=== PATIENT | male | born 1975 | race Caucasian/White ===

== ENCOUNTER 2024-05-10 23:54 | Emergency (ER) | payer OTHER, SELFPAY ==
[2024-05-10 23:54] VITALS: BMI 37.0
[2024-05-10 23:55] VITALS: BP 122/74
--- NOTE | 2024-05-11 00:42 | ED.GENMED ---
History of Present Illness
General
Chief Complaint: Abdominal Pain
Time Seen by Provider: 05/11/24 00:08
History of Present Illness
History of Present Illness:
49-year-old male with history of cirrhosis, esophageal varices, withdrawal seizures, EtOH abuse with last ingestion 5 months ago, chronic lower extremity edema presenting to the emergency department for multiple complaints. Patient primarily
presenting for abdominal pain. Patient notes that he has been having abdominal pain for the past year, in the past few days however, has worsened in the right upper region of the abdomen. Reports nausea, denies vomiting. Denies chest pain or
difficulty breathing. Denies fever. Additionally notes some bilateral leg pain, radiating down his legs, ongoing for several months. Denies inciting injury or trauma. Denies weakness or numbness to extremities. Additionally notes chronic right
sided blindness and in the past year, has had worsening left-sided vision. No additional history obtained at this time
Past History
Past History
ED Past Medical History: Cancer (Hepatocellular carcinoma) and Other (Alcoholic cirrhosis)
Social History
Alcohol: Former
Phy Exam
Physical Exam
Physical Exam:
General: Well-appearing, no clinical signs of dehydration, nontoxic and in no acute distress
HEENT: protecting airway
Neck: appears supple
CV: Normal heart rate, regular rhythm
Resp: No accessory muscle use, no increased work of breathing, lungs clear to auscultation bilaterally
Abd: Soft and non-distended, generalized tenderness to the abdomen, most prominent in the right upper quadrant without rebound or guarding
Extremities: No deformities, +2-3 pitting edema bilaterally, noted to be chronic. No erythema or warmth. Range of motion of extremities is intact. Sensation intact.
Neuro: alert, no focal neurologic deficit
: deferred
Rectal: deferred
Psych: Normal affect
Skin: Intact
Course
Orders/Labs/Results
Orders:
Orders
05/11/24 00:37
Urinalysis Reflex To Culture Urgent
05/11/24 00:38
CT Abd/pelvis W Iv Cont Urgent
Comment:
Reason For Exam: right sided abdominal pain, known liver disease
05/11/24 00:57
CT Head W/o Iv Contrast Urgent
Comment:
Reason For Exam: Left visual issue
05/11/24 01:09
PTT Urgent
Prothrombin Time Urgent
05/11/24 01:10
Complete Blood Count/With Diff Urgent
05/11/24 01:30
Comprehensive Metabolic Panel Urgent
Lipase Urgent
Comment: REDRAW
05/11/24 01:49
Morphine Sulfate 4 mg IV NOW STA
05/11/24 01:55
Ondansetron Injectable [Zofran] 4 mg IV NOW STA
05/11/24 01:56
Ondansetron Injectable [Zofran] 4 mg .ROUTE .STK-MED ONE
Abnormal Lab Results
05/11/24 05/11/24 05/11/24
01:09 01:10 01:30
WBC 4.1 L 10^3/uL
(4.8-10.8)
RBC 3.16 L 10^6/uL
(4.70-6.10)
Hgb 10.5 L g/dL
(13.0-18.0)
Hct 29.4 L %
(39.0-52.0)
MCH 33.2 H pg
(27.0-31.0)
RDW 15.6 H %
(11.5-14.5)
Plt Count 88 L 10^3/uL
(130-400)
MPV 10.7 H fL
(7.4-10.4)
Absolute Monos (auto) 0.8 H 10^3/uL
(0.1-0.6)
Neutrophils % 35.0 L %
(42.2-75.2)
Monocytes % 19.1 H %
(1.7-9.3)
PT 18.7 H Sec
(11.4-14.6)
APTT 37.2 H Sec
(23.4-35.0)
Chloride 113 H mmol/L
(98-107)
Carbon Dioxide 19 L mmol/L
(22-30)
Total Bilirubin 1.5 H mg/dl
(0.2-1.3)
Total Protein 6.1 L g/dl
(6.3-8.2)
Albumin 3.0 L g/dl
(3.5-5.0)
05/11/24 01:10
05/11/24 01:30
Vital Signs
Initial and Last Documented VS:
Initial Vital Signs
Temp Pulse Resp BP Pulse Ox
97.8 F 57 20 122/74 98
05/10/24 23:55 05/10/24 23:55 05/10/24 23:55 05/10/24 23:55 05/10/24 23:55
Last Documented Vital Signs
Temp Pulse Resp BP Pulse Ox
97.8 F 53 13 109/64 98
05/10/24 23:55 05/11/24 01:30 05/11/24 01:30 05/11/24 01:01 05/10/24 23:55
MDM/Problems Addressed
MDM/Problems Addressed:
49-year-old male with history of cirrhosis, esophageal varices, withdrawal seizures, EtOH abuse with last ingestion 5 months ago, chronic lower extremity edema presenting primarily for abdominal pain. Vital signs are normal.
On exam patient resting comfortably, nontoxic, no acute distress or discomfort. Given patient's medical history and location of pain, with known liver disease, suspected underlying chronic symptoms, has been ongoing for more than a year. For this
reason lower suspicion for acute pathology such as Coleocystitis or cholelithiasis. However, is additionally tender to the right lower quadrant. Given additional diffuse pain and chronic medical issues, plan for laboratory analysis and CT
abdominal imaging. Regarding back pain, suspected lumbar radiculopathy. Again chronic in nature. Without concern for severe pathology. No midline tenderness, no report of trauma, no focal neurologic deficits or red flag symptoms. Regarding
visual issues, again suspected chronic in nature. Reports worsening in the past month. This reason we will obtain a CT brain. Otherwise likely plan for outpatient ophthalmologic follow-up.
02:50 -CT brain without acute intracranial abnormality. CT of the abdomen and pelvis does show cirrhosis with trace edema around the pancreas, suspected to be from ascites. Normal appendix, no bowel obstruction or inflammation. At this time no
findings to suggest acute nature of patient's pain. Labs unremarkable, no leukocytosis, chronic anemia. Feel stable for discharge with interval follow-up with his GI doctor, as well as the eye doctor. Return precautions discussed and patient
verbalized understanding
*Critical Care Note
Total Time (30-74mins, 75-104mins- exclusive of procedures): Not Applicable
ED Attending Note
-
Portions of this chart may have been created with voice recognition software.� Occasional wrong word or��sound alike� substitutions may have occurred due to the inherent limitations of voice recognition software.
Discharge Plan
Departure
Prescriptions:
No Action
oxycodone 20 MG tablet
20 mg PO Q4HPRN PRN (Reason: moderate to severe pain)
Patient Comments:
05/27/2021: last filled on 05/22/21, 60 tabs for 10 days from [facility]
lactulose 10 GM/15 ML solution
10 gm PO BID
Aldactone
Patient Comments:
Pt unsure of prescribed dose- stopped taking on own 'a couple of months ago'
pantoprazole 40 MG tablet,delayed release (DR/EC)
40 mg PO BID Qty: 30 0RF
Referrals:
Lianne Patton MD [Family Provider] -
Interventions
Interventions:
*Risk Screen - Suicide Last Done: 05/10/24 23:55
*General Assessment Last Done: 05/10/24 23:55
*Neglect/Abuse Screening Last Done: 05/10/24 23:55
ED- Fall Risk Assessment Last Done: 05/10/24 23:55
*ED COVID-19 Vaccine History Last Done: 05/10/24 23:55
Discharge Date and Time
Print Language: YAKUT
[2024-05-11 01:01] VITALS: BP 109/64
[2024-05-11] MEDS: MORPHINE SULFATE 4 MG IV (01:51)
[2024-05-11 01:54] LABS: INR 1.58; PT 18.7 Sec (11.4-14.6)
[2024-05-11 01:55] LABS: APTT 37.2 Sec (23.4-35.0)
[2024-05-11] MEDS: ZOFRAN 4 MG IV (01:57)
[2024-05-11 01:58] VITALS: BP 124/75
[2024-05-11 02:00] LABS: ALT (SGPT) 21 U/L (0-50); AST (SGOT) 38 U/L (17-59); Alkaline Phosphatase 122 U/L (38-126); Blood Urea Nitrogen 11 mg/dl (9-20); Calcium 8.6 mg/dl (8.4-10.2); Carbon Dioxide 19 mmol/L (22-30); Chloride 113 mmol/L (98-107); Estimated Creatinine Clearance > 125 ml/min; Glucose 96 mg/dl (70-99); Lipase 201 U/L (23-300); Sodium 143 mmol/L (135-145); Total Bilirubin 1.5 mg/dl (0.2-1.3); Total Protein 6.1 g/dl (6.3-8.2); eGFR > 60.00
[2024-05-11 02:05] LABS: % Basophils 1.2 % (0-2); % Eosinophils 4.9 % (0-6); % Immature Granulocytes 0.2 % (0-0.5); % Lymphocytes 39.6 % (20.5-51.1); % Monocytes 19.1 % (1.7-9.3); Absolute Basophils 0.1 10^3/uL (0-0.2); Absolute Eosinophils 0.2 10^3/uL (0-0.7); Absolute Lymphocytes 1.6 10^3/uL (1.2-3.4); Absolute Monocytes 0.8 10^3/uL (0.1-0.6); Absolute Neutrophils 1.4 10^3/uL (1.4-6.5); Hematocrit 29.4 % (39.0-52.0); Hemoglobin 10.5 g/dL (13.0-18.0); Mean Corp Hgb Conc. 35.7 g/dL (33.0-37.0); Mean Corpuscular Hgb 33.2 pg (27.0-31.0); Mean Platelet Volume 10.7 fL (7.4-10.4); Nucleated Red Blood Cells % 0 % (-); Platelet Count 88 10^3/uL (130-400); Red Blood Cell Count 3.16 10^6/uL (4.70-6.10); Red Cell Dist. Width 15.6 % (11.5-14.5); White Blood Cell Count 4.1 10^3/uL (4.8-10.8)
== END 2024-05-11 03:30 | disposition home or self-care (01) ==
LOC: EMR 23:54
PROVIDERS: EMERGENCY PHYSICIAN Student in an Organized Health Care Education/Training Program; FAMILY PHYSICIAN Internal Medicine
DX: R10.9 Unspecified abdominal pain (principal); K70.30 Alcoholic cirrhosis of liver without ascites; M79.605 Pain in left leg; M79.604 Pain in right leg; G89.29 Other chronic pain; H54.7 Unspecified visual loss
CPT/HCPCS: 96374; 96375; 99284; 70450; 74177; 80053; 83690; 85025; 85610; 85730; Q9967

== ENCOUNTER 2024-05-20 15:03 | Inpatient (IN) | payer OTHER, SELFPAY ==
[2024-05-20] VITALS (12 sets, daily range): BP systolic 85–138; BP diastolic 63–89
--- NOTE | 2024-05-20 12:45 | ED.GENMED ---
History of Present Illness
<Sunita Teran PA-C - Last Filed: 05/20/24 19:20>
General
Chief Complaint: Withdrawal Symptoms
Source: patient
Exam Limitations: none
Time Seen by Provider: 05/20/24 12:42
Nursing documentation reviewed up to this point in time: agreed with
History of Present Illness
History of Present Illness:
49-year-old male with past medical history of bleeding gastric ulcer, alcohol use disorder, cirrhosis of the liver, presents emergency department with concerns of alcohol withdrawal. Patient states that yesterday, he had a few drinks for the first
time in 5 months and states that later in the evening, he started to develop tremors, nausea, and abdominal discomfort. He also states that he feels anxiety on and off. Daughter reports that patient has appeared slightly confused to her and
thought that he might have been having auditory hallucinations last night. Patient denies headaches, lightheadedness, dizziness, chest pain. Patient also admits that he had an episode of dark almost black stool this morning. Patient has seized
from alcohol withdrawal in the past. Patient has been in rehab in the past and wants to go bad to an inpatient rehab facility.
Past History
<Sunita Teran PA-C - Last Filed: 05/20/24 19:20>
Past History
ED Past Medical History: Cancer (Hepatocellular carcinoma) and Other (Alcoholic cirrhosis)
Social History
Alcohol: Former
Review of Systems
<Sunita Teran PA-C - Last Filed: 05/20/24 19:20>
Review of Systems
All Other Systems: ROS reviewed and negative except as documented in HPI and ROS
Phy Exam
<Sunita Teran PA-C - Last Filed: 05/20/24 19:20>
Physical Exam
Physical Exam:
General: Patient is in mild anxious distress, appears uncomfortable, but non-toxic appearing
Skin: Warm and dry, no rashes or lesions
Head: Normocephalic, atraumatic
Eyes: Sclera mildly cicteric. EOMs intact. PERRLA.
Cardiac: Regular rate and rhythm, no murmurs
Peripheral Vascular: No lower extremity swelling or edema
Pulm: Normal respiratory effort, no wheezes, rales, rhonchi
Abdomen: Epigastric abdominal tenderness to palpation noted with guarding
Rectal: Minimal stool noted in rectal vault.
Neuro: CN II-XII intact, resting tremor noted with arms extended.
Psychiatric: Anxious but pleasant and cooperative
Scores
<Sunita Teran PA-C - Last Filed: 05/20/24 19:20>
Withdrawal Assessment of Alcohol
Withdrawal Assessment Completed?: Yes
Nausea and Vomiting: Mild nausea with no vomiting
Tactile Disturbances: Mild itching, pins and needles, burning or numbness
Tremor: Moderate, with patient's arms extended
Auditory Disturbances: Not present
Paroxysmal Sweats: No sweat visible
Visual Disturbances: Not present
Anxiety: Mild anxiety
Headache, Fullness in Head: Not present
Agitation: Moderately fidgety and restless
Orientation and clouding of sensorium: Oriented and can do serial additions
Total CIWA Score: 12
Alcohol Withdrawal Medication Recommendation: Equal to MSAS Score 5-7. Lorazepam 1mg IV or PO NOW & re-assess q2hrs
<Fernando Fried MD - Last Filed: 05/21/24 05:59>
Withdrawal Assessment of Alcohol
Total CIWA Score: 12
Alcohol Withdrawal Medication Recommendation: Equal to MSAS Score 5-7. Lorazepam 1mg IV or PO NOW & re-assess q2hrs
Course
<Sunita Teran PA-C - Last Filed: 05/20/24 19:20>
Orders/Labs/Results
Orders:
Orders
05/20/24 Breakfast
NPO
Allow oral meds: Yes
Allow clear liquids: Sips of Clears
05/20/24 12:52
Alcohol Urgent
Complete Blood Count/With Diff Urgent
Comprehensive Metabolic Panel Urgent
Lipase Urgent
Comment: ADD ON
05/20/24 12:55
Ammonia Urgent
05/20/24 12:56
Add On- LAB Urgent
Tests Added?: lipase
05/20/24 13:03
0.9% Sodium Chloride 1000 ml [Nss] 1,000 ml IV BOLUS
Lorazepam [Ativan] 2 mg IV NOW STA
Ondansetron Injectable [Zofran] 4 mg IV NOW STA
05/20/24 13:04
Electrocardiogram (*1) Urgent
Reason for Study: QTc Monitoring
EKG- Treatment ONCE
05/20/24 13:57
Pantoprazole [Protonix IV] 40 mg IV NOW STA
05/20/24 14:00
Lactulose [Duphalac/Chronulac] 20 grams PO DAILY
Pantoprazole 80 mg/100 ml Nss [Protonix] 80 mg in 100 ml IV Q10H
05/20/24 14:53
Admit/Transfer Patient As Directed
Co-Sign Provider:
Level of Care: Inpatient admission
Assign to:: IMU- Intermediate Care
Physician / Group: adrien
Diagnosis: UGIB, hepatic encephelopathy
Reason for Hospitalization: UGIB, hepatic encephelopathy
Expected length of stay greater than two midnights?: Yes
ELOS- Estimated Length of Stay in days: 2
I certify the patient meets the requirements for IP care: Yes
Code Status As Directed
Resuscitation Status: Full Code
PRN Pain Medication Management As Directed
May give lesser potent ordered pain med per pt: Yes
preference::
Protocol:: Medication orders for pain may be administered in a
manner that supports deferring to patient preference
when the pt is:
- Requesting an ordered lesser potent pain medication.
Least to most potent pain medications are defined
as: acetaminophen < NSAID < tramadol < opioids
(morphine, oxycodone, hydromorphone).
- Requesting a lesser dose of the same medication IF
ORDERED.
- Requesting a less intrusive route of administration
if both routes are prescribed by the provider (PO <
IV).
05/20/24 14:58
US Abdomen Limited Urgent
Comment:
Reason For Exam: ascites
05/20/24 Dinner
Clear Liquid
At Your Request: Limited Participation
05/20/24 16:00
CefTRIAXone [Rocephin] 2,000 mg IV Q24H
05/20/24 17:37
0.9% Sodium Chloride [Nss (Preservative Free)] See Protocol IV PRN PRN
FOLic ACID [Folvite] 1 mg 0.9% Sodium Chloride 50 ml [Nss] 50 ml IV DAILYPRN
Lorazepam [Ativan] 1 mg IV Q1HPRN PRN
Lorazepam [Ativan] 1 mg PO Q2HPRN PRN
Lorazepam [Ativan] 2 mg IV Q1HPRN PRN
05/20/24 17:37
GASTROINTESTINAL CONSULT Routine
Consulting Provider: Sangeetha Mills
Was physician already notified: Yes
Activity As Directed
Activity Level: As Tolerated
MSAS SCORE As Directed
MSAS Score 0-4: Repeat MSAS every 2 hours until 0-4 for three consecutive assessments, then every 4 hours x 48
hours.
MSAS Score 5-7: For MILD withdrawl symptoms. Repeat MSAS and RASS every 2 hours
MSAS Score 8-11: For MODERATE withdrawal symptoms. Repeat MSAS and RASS every 1 hour. Consider ICU or IMU
level of care.
MSAS Score > 11: For SEVERE withdrawal symptoms. Repeat MSAS and RASS every 1 hour. Notify provider, consider
ICU level of care.
MSAS Additional Instructions: If no improvement or no decrease in score from severe to moderate within 12
hours, consult psychiatry
MSAS Notify Provider: Notify provider if patient requires more than 10 mg of Lorazepam in eight hour period.
Orthostatic Vital Signs As Directed
Orthostatic VS Frequency: Now
Comment: then every four hours for twenty-four hours
Pneumatic Compression Sleeves As Directed
Type: Knee high
Vital Signs As Directed
Frequency: Per unit guidelines
DX Deep Vein Thrombosis Video Routine
05/20/24 18:00
Octreotide Acetate [Sandostatin] 600 mcg 0.9% Sodium Chloride 500 ml [Nss] 500 ml IV Q12H
05/20/24 20:00
Carvedilol [Coreg] 3.125 mg PO BID
Rifaximin [Xifaxan] 550 mg PO BID
Thiamine Injection 200 mg IV Q12
05/21/24 00:00
Pantoprazole 80 mg/100 ml Nss [Protonix] 80 mg in 100 ml IV Q10H
05/21/24 05:11
Complete Blood Count/With Diff IN AM
05/21/24 08:00
FOLic ACID [Folvite] 1 mg PO DAILY
Furosemide [Lasix] 40 mg PO DAILY
Spironolactone [Aldactone] 50 mg PO DAILY
05/23/24 20:00
Thiamine HCl [Vitamin B1] 100 mg PO BID
Abnormal Lab Results
05/20/24 05/20/24
12:52 12:55
WBC 3.4 L 10^3/uL
(4.8-10.8)
RBC 3.35 L 10^6/uL
(4.70-6.10)
Hgb 11.2 L g/dL
(13.0-18.0)
Hct 31.5 L %
(39.0-52.0)
MCH 33.4 H pg
(27.0-31.0)
RDW 15.9 H %
(11.5-14.5)
Plt Count 91 L 10^3/uL
(130-400)
Monocytes % 16.1 H %
(1.7-9.3)
BUN 7 L mg/dl
(9-20)
Glucose 120 H mg/dl
(70-99)
Total Bilirubin 3.1 H mg/dl
(0.2-1.3)
AST 64 H U/L
(17-59)
Ammonia 116 H umol/L
(9-30)
Lipase 309 H U/L
(23-300)
05/20/24 12:52
05/20/24 12:52
Vital Signs
Initial and Last Documented VS:
Initial Vital Signs
Temp Pulse Resp BP Pulse Ox
98.2 F 86 24 124/89 98
05/20/24 12:15 05/20/24 12:15 05/20/24 12:15 05/20/24 12:15 05/20/24 12:15
Last Documented Vital Signs
Temp Pulse Resp BP Pulse Ox
97.6 F 62 15 103/59 92
05/21/24 04:09 05/21/24 02:20 05/21/24 02:20 05/21/24 02:20 05/21/24 02:20
<Fernando Fried MD - Last Filed: 05/21/24 05:59>
Orders/Labs/Results
Orders:
Orders
05/20/24 Breakfast
NPO
Allow oral meds: Yes
Allow clear liquids: Sips of Clears
05/20/24 12:52
Alcohol Urgent
Complete Blood Count/With Diff Urgent
Comprehensive Metabolic Panel Urgent
Lipase Urgent
Comment: ADD ON
05/20/24 12:55
Ammonia Urgent
05/20/24 12:56
Add On- LAB Urgent
Tests Added?: lipase
05/20/24 13:03
0.9% Sodium Chloride 1000 ml [Nss] 1,000 ml IV BOLUS
Lorazepam [Ativan] 2 mg IV NOW STA
Ondansetron Injectable [Zofran] 4 mg IV NOW STA
05/20/24 13:04
Electrocardiogram (*1) Urgent
Reason for Study: QTc Monitoring
EKG- Treatment ONCE
05/20/24 13:57
Pantoprazole [Protonix IV] 40 mg IV NOW STA
05/20/24 14:00
Lactulose [Duphalac/Chronulac] 20 grams PO DAILY
Pantoprazole 80 mg/100 ml Nss [Protonix] 80 mg in 100 ml IV Q10H
05/20/24 14:53
Admit/Transfer Patient As Directed
Co-Sign Provider:
Level of Care: Inpatient admission
Assign to:: IMU- Intermediate Care
Physician / Group: adrien
Diagnosis: UGIB, hepatic encephelopathy
Reason for Hospitalization: UGIB, hepatic encephelopathy
Expected length of stay greater than two midnights?: Yes
ELOS- Estimated Length of Stay in days: 2
I certify the patient meets the requirements for IP care: Yes
Code Status As Directed
Resuscitation Status: Full Code
PRN Pain Medication Management As Directed
May give lesser potent ordered pain med per pt: Yes
preference::
Protocol:: Medication orders for pain may be administered in a
manner that supports deferring to patient preference
when the pt is:
- Requesting an ordered lesser potent pain medication.
Least to most potent pain medications are defined
as: acetaminophen < NSAID < tramadol < opioids
(morphine, oxycodone, hydromorphone).
- Requesting a lesser dose of the same medication IF
ORDERED.
- Requesting a less intrusive route of administration
if both routes are prescribed by the provider (PO <
IV).
05/20/24 14:58
US Abdomen Limited Urgent
Comment:
Reason For Exam: ascites
05/20/24 Dinner
Clear Liquid
At Your Request: Limited Participation
05/20/24 16:00
CefTRIAXone [Rocephin] 2,000 mg IV Q24H
05/20/24 17:37
0.9% Sodium Chloride [Nss (Preservative Free)] See Protocol IV PRN PRN
FOLic ACID [Folvite] 1 mg 0.9% Sodium Chloride 50 ml [Nss] 50 ml IV DAILYPRN
Lorazepam [Ativan] 1 mg IV Q1HPRN PRN
Lorazepam [Ativan] 1 mg PO Q2HPRN PRN
Lorazepam [Ativan] 2 mg IV Q1HPRN PRN
05/20/24 17:37
GASTROINTESTINAL CONSULT Routine
Consulting Provider: Sangeetha Mills
Was physician already notified: Yes
Activity As Directed
Activity Level: As Tolerated
MSAS SCORE As Directed
MSAS Score 0-4: Repeat MSAS every 2 hours until 0-4 for three consecutive assessments, then every 4 hours x 48
hours.
MSAS Score 5-7: For MILD withdrawl symptoms. Repeat MSAS and RASS every 2 hours
MSAS Score 8-11: For MODERATE withdrawal symptoms. Repeat MSAS and RASS every 1 hour. Consider ICU or IMU
level of care.
MSAS Score > 11: For SEVERE withdrawal symptoms. Repeat MSAS and RASS every 1 hour. Notify provider, consider
ICU level of care.
MSAS Additional Instructions: If no improvement or no decrease in score from severe to moderate within 12
hours, consult psychiatry
MSAS Notify Provider: Notify provider if patient requires more than 10 mg of Lorazepam in eight hour period.
Orthostatic Vital Signs As Directed
Orthostatic VS Frequency: Now
Comment: then every four hours for twenty-four hours
Pneumatic Compression Sleeves As Directed
Type: Knee high
Vital Signs As Directed
Frequency: Per unit guidelines
DX Deep Vein Thrombosis Video Routine
05/20/24 18:00
Octreotide Acetate [Sandostatin] 600 mcg 0.9% Sodium Chloride 500 ml [Nss] 500 ml IV Q12H
05/20/24 20:00
Carvedilol [Coreg] 3.125 mg PO BID
Rifaximin [Xifaxan] 550 mg PO BID
Thiamine Injection 200 mg IV Q12
05/21/24 00:00
Pantoprazole 80 mg/100 ml Nss [Protonix] 80 mg in 100 ml IV Q10H
05/21/24 05:11
Complete Blood Count/With Diff IN AM
05/21/24 08:00
FOLic ACID [Folvite] 1 mg PO DAILY
Furosemide [Lasix] 40 mg PO DAILY
Spironolactone [Aldactone] 50 mg PO DAILY
05/23/24 20:00
Thiamine HCl [Vitamin B1] 100 mg PO BID
Abnormal Lab Results
05/20/24 05/20/24
12:52 12:55
WBC 3.4 L 10^3/uL
(4.8-10.8)
RBC 3.35 L 10^6/uL
(4.70-6.10)
Hgb 11.2 L g/dL
(13.0-18.0)
Hct 31.5 L %
(39.0-52.0)
MCH 33.4 H pg
(27.0-31.0)
RDW 15.9 H %
(11.5-14.5)
Plt Count 91 L 10^3/uL
(130-400)
Monocytes % 16.1 H %
(1.7-9.3)
BUN 7 L mg/dl
(9-20)
Glucose 120 H mg/dl
(70-99)
Total Bilirubin 3.1 H mg/dl
(0.2-1.3)
AST 64 H U/L
(17-59)
Ammonia 116 H umol/L
(9-30)
Lipase 309 H U/L
(23-300)
05/20/24 12:52
05/20/24 12:52
Vital Signs
Initial and Last Documented VS:
Initial Vital Signs
Temp Pulse Resp BP Pulse Ox
98.2 F 86 24 124/89 98
05/20/24 12:15 05/20/24 12:15 05/20/24 12:15 05/20/24 12:15 05/20/24 12:15
Last Documented Vital Signs
Temp Pulse Resp BP Pulse Ox
97.6 F 62 15 103/59 92
05/21/24 04:09 05/21/24 02:20 05/21/24 02:20 05/21/24 02:20 05/21/24 02:20
<Sunita Teran PA-C - Last Filed: 05/20/24 19:20>
MDM/Problems Addressed
Differential Diagnosis Includes:
ddx include acute alcohol withdrawal, gastritis, duodenitis, hepatic encephalopathy, delirium tremens,
MDM/Problems Addressed:
History and physical exam concerning for hepatic encephalopathy, with ammonia level noted to be 112. History also concerning for bleeding gastric ulcer however Hgb at baseline and no melena noted on exam. Patient at high risk for withdrawal
seizures. Will admit for further treatment and evaluated.
<Sunita Teran PA-C - Last Filed: 05/20/24 19:20>
*Critical Care Note
Total Time (30-74mins, 75-104mins- exclusive of procedures): Not Applicable
ED Attending Note
<Sunita Teran PA-C - Last Filed: 05/20/24 19:20>
-
Portions of this chart may have been created with voice recognition software.� Occasional wrong word or��sound alike� substitutions may have occurred due to the inherent limitations of voice recognition software.
<Fernando Fried MD - Last Filed: 05/21/24 05:59>
ED Attending Note
Patient seen and examined by attending physician: Yes
ED Attending Note:
Pt with history of alcohol abuse, liver cirrhosis, and gastric ulcer, presents to ED with concern for going through alcohol withdrawal with tremor/shaking with nausea/vomiting, along with diffuse abdominal. Pt who had been sober for 3 yrs, states
that he started drinking again 5 days ago, with last alcohol intake yesterday. Abdominal pain described as sharp along upper abdomen, similar to previous episode of gastric ulcer. In addition, patient reports dark stool this morning. Denies
dizziness/cp/sob.
General: well nourished male, in mild distress. afebrile
Heent: nc/at. eomi
Lungs: cta.
Heart: rrr. no murmur.
Abd: soft, mild distention with diffuse tenderness to palpation.
Neuro: aao x 3. no focal neurological deficit.
Skin: warm to touch. no rash.
Psych: pleasant and cooperative.
Pt treated immediately with ativan/IVF, secondary to moderate withdrawal symptoms. Zofran withheld due to prolonged QT noted on EKG.
History and exam concerning for alcohol withdrawal along with hepatic encephalopathy, with increased ammonia level, associated with mild confusion noted by patient's daughter. In addition, with dark stool and history to gastric ulcer, will start
protonix gtt and admit for further evaluation and treatment.
Critical care statement: A total of 40 minutes of critical care time was provided for this patient. This includes management of unstable vital signs, evaluation of the patient at bedside, reviewing the patient's pertinent medical records, review of
old EKGs and review of pertinent medical records. This time with separate from time utilized to perform the aforementioned documented procedures
Discharge Plan
Departure
Patient Disposition: Admit
Date of Disposition: 05/20/24
Time of Disposition: 14:25
Admit to: Med/Surg
Presentation/result/management discussed w/ accepting MD/DO: Hospitalist
Patient with high blood pressure during this ER visit?: Yes
Condition: Fair
Discharge Problem:
Hepatic encephalopathy, Melena
Interventions
Interventions:
*Risk Screen - Suicide Last Done: 05/20/24 12:35
*General Assessment Last Done: 05/20/24 12:35
*Neglect/Abuse Screening Last Done: 05/20/24 12:35
ED- Fall Risk Assessment Last Done: 05/20/24 12:35
*ED COVID-19 Vaccine History Last Done: 05/20/24 12:16
*Nursing Disposition Last Done: 05/20/24 17:13
ED- Neurological Assessment Last Done: 05/20/24 12:35
ED-Psychological Assessment Last Done: 05/20/24 12:35
Discharge Date and Time
Discharge Date/Time: 05/20/24 17:13
[2024-05-20] MEDS: ATIVAN 2 MG IV (13:07)
[2024-05-20] MEDS: NSS 1000 IV (13:08)
[2024-05-20 13:11] LABS: % Basophils 0.6 % (0-2); % Lymphocytes 34.5 % (20.5-51.1); % Monocytes 16.1 % (1.7-9.3); % Neutrophils 45.8 % (42.2-75.2); Absolute Eosinophils 0.1 10^3/uL (0-0.7); Absolute Lymphocytes 1.2 10^3/uL (1.2-3.4); Absolute Monocytes 0.5 10^3/uL (0.1-0.6); Absolute Neutrophils 1.5 10^3/uL (1.4-6.5); Hematocrit 31.5 % (39.0-52.0); Hemoglobin 11.2 g/dL (13.0-18.0); Mean Corp Hgb Conc. 35.6 g/dL (33.0-37.0); Mean Corpuscular Hgb 33.4 pg (27.0-31.0); Mean Platelet Volume 10.4 fL (7.4-10.4); Nucleated Red Blood Cells % 0 % (-); Platelet Count 91 10^3/uL (130-400); Red Blood Cell Count 3.35 10^6/uL (4.70-6.10); Red Cell Dist. Width 15.9 % (11.5-14.5); White Blood Cell Count 3.4 10^3/uL (4.8-10.8)
[2024-05-20 13:19] LABS: Ammonia 116 umol/L (9-30)
[2024-05-20 13:30] LABS: ALT (SGPT) 25 U/L (0-50); AST (SGOT) 64 U/L (17-59); Albumin 3.6 g/dl (3.5-5.0); Alkaline Phosphatase 125 U/L (38-126); Blood Urea Nitrogen 7 mg/dl (9-20); Calcium 8.6 mg/dl (8.4-10.2); Carbon Dioxide 23 mmol/L (22-30); Chloride 107 mmol/L (98-107); Glucose 120 mg/dl (70-99); Lipase 309 U/L (23-300); Potassium 4.2 mmol/L (3.5-5.1); Sodium 141 mmol/L (135-145); Total Bilirubin 3.1 mg/dl (0.2-1.3); Total Protein 6.7 g/dl (6.3-8.2); eGFR > 60.00
[2024-05-20 13:33] LABS: Alcohol None Detected
[2024-05-20] MEDS: PROTONIX 100 IV ×2 (14:29→23:52)
[2024-05-20] MEDS: PROTONIX IV 40 MG IV (14:29)
[2024-05-20] MEDS: DUPHALAC/CHRONULAC 20 GRAMS PO (14:29)
--- NOTE | 2024-05-20 15:02 | HPS.HSE ---
Addendum entered and electronically signed by Jerry Landaverde MD 05/20/24 22:24:
IV fluids started for acute pancreatitis so stopped lasix and spironolactone.
Addendum entered and electronically signed by Jerry Landaverde MD 05/20/24 19:38:
Patient told nurse he was using cocaine 2 days ago and previously 10 years ago. Monitor for withdrawal.
Original Note:
Family Physician
-
Family Physician: INTERVIEWE UNKNOWN - PT NOT
Chief Complaint
-
abdominal pain
History of Present Illness
49-year-old male past medical history of bleeding gastric ulcer, esophageal varices status post banding, reported hepatocellular carcinoma, alcohol use disorder, alcohol withdrawal seizures, liver cirrhosis presenting with concerns for alcohol
withdrawal. Yesterday he had a few drinks of alcohol for the first time in 5 months and later that evening he began to have tremors, nausea and abdominal discomfort. He drank 1 bottle of whiskey as well as a beer. He also feels anxious. Daughter
reports that he has been slightly confused and that he may have had auditory hallucinations last night. He denies headache, lightheadedness, dizziness. He had an episode of dark almost black stool this morning. Patient is interested in going to
inpatient rehab facility.
He complains of stabbing pain in his abdomen that does radiate up his chest. He did have nausea and episode of vomiting without blood in the vomit. He denies any blood in the stool or black stool prior to this morning. He reports his last
paracentesis was over a year ago. He GI physician is apparently at [facility].
He takes lactulose twice a day and has 4-5 loose bowel movements per day.
Uses marijuana. He denies smoking or any other drugs.
Medical History
Past Medical History
Past Medical History: Reports Other (bleeding gastric ulcer, esophageal varices status post banding, alcohol use disorder, alcohol withdrawal seizures, liver cirrhosis)
Past Surgical History: Reports None
Social History
Tobacco: Non-smoker
Alcohol: Occasional
Drug: Marijuana
Family History
Family History: Not pertinent
Allergies / Home Medications
Allergies reflects when Allergies were last updated in [employer].
Home Medications with original date entered in [employer]
Allergy/Medication List:
Allergies
Allergy/AdvReac Type Severity Reaction Status Date / Time
No Known Allergies Allergy Verified 05/10/24 23:54
Home Medications
lactulose 10 gram/15 mL (15 mL) oral solution 20 gm PO BID Liver issues 05/27/21
pantoprazole 40 mg tablet,delayed release 40 mg PO BID #30 tabs 05/29/21
carvedilol 3.125 mg tablet (Coreg) 3.125 mg PO BID 05/20/24
furosemide 40 mg tablet (Lasix) 40 mg PO DAILY 05/20/24
rifaximin 550 mg tablet (Xifaxan) 550 mg PO BID 05/20/24
spironolactone 50 mg tablet 50 mg PO DAILY 05/20/24
Review of Systems
-
History Source: Patient
A 12 point ROS was completed and negative except as noted: Yes
Constitutional: Reports No Symptoms
EENT: Reports No Symptoms
Respiratory: Reports No Symptoms
Cardiac: Reports No Symptoms
Abdomen/GI: Reports See HPI
: Reports No Symptoms
Musculoskeletal: Reports No Symptoms
Skin: Reports No Symptoms
Neurological: Reports No Symptoms
Endocrine: Reports No Symptoms
Hematologic/Lymphatic: Reports No Symptoms
Psych: Reports No Symptoms
Physical Exam
Vital Signs
Vital Signs
Temp Pulse Resp BP Pulse Ox
98.2 F 71 15 119/67 97
05/20/24 12:15 05/20/24 14:45 05/20/24 14:45 05/20/24 14:00 05/20/24 14:45
Physical Exam
General: Well Developed, Well Nourished and No Apparent Distress
HEENT: NormoCephalic, Moist mucous membranes and Atraumatic
Respiratory: Clear
Cardiac: S1/S2 and Regular Rhythm; No Murmur or Rub
GI: Soft, Non Distended, Normal Bowel Sounds, Tender and Distended; No Organomegaly
Rectal: Deferred by Provider
Musculoskeletal: No Clubbing, No Cyanosis and No Edema
Skin: No Rash
Neuro: Nonfocal/grossly intact
Laboratory Results
-
05/20/24 12:52
05/20/24 12:52
Laboratory Results
Total Bilirubin 3.1 mg/dl (0.2-1.3) H 05/20/24 12:52
AST 64 U/L (17-59) H 05/20/24 12:52
ALT 25 U/L (0-50) 05/20/24 12:52
Alkaline Phosphatase 125 U/L (38-126) 05/20/24 12:52
Lipase 309 U/L (23-300) H 05/20/24 12:52
Data Reviewed
-
Lab Data: Labs Reviewed by me
Old Records: Reviewed
Impression/Plan
-
IMPRESSION:
PLAN:
# Alcohol withdrawal
# Alcohol use disorder
# History of alcohol withdrawal seizures
-IV fluids given
-Alcohol withdrawal protocol
-Thiamine and folate
# Hepatic encephalopathy
# History of alcoholic liver cirrhosis
# Reported history of hepatocellular carcinoma
-Ammonia level 116
-Continue lactulose
-Continue rifaximin
-Abdominal ultrasound to evaluate for ascites
-Continue Lasix, spironolactone
-Continue Coreg
# Upper GI bleeding
# Epigastric pain secondary to GERD/ascites
# History of esophageal varices status post banding
# History of gastric ulcer
-Clear liquid diet, n.p.o. past midnight
-Protonix drip
-Octreotide drip
-Ceftriaxone
-Patient follows GI at [facility]
# Leukopenia/thrombocytopenia secondary to cirrhosis
-Stable
#Chronic macrocytic anemia secondary to cirrhosis
-Hemoglobin stable at 11.2
Marijuana user
Full code
DVT prophylaxis�SCDs
Clear liquid diet, n.p.o. past midnight
--- NOTE | 2024-05-20 15:21 | CON.GI ---
Addendum entered and electronically signed by Shady Royal MD 05/20/24 17:23:
I saw and examined the patient.
The IRONWORKER WIRE FENCE ERECTOR or PA's note was reviewed and I agree with the note.
Comment: 49yo male with hx EtOH cirrhosis followed at [facility] presents with EtOH withdrawal. Drank bottle of whiskey and case of beer yesterday. Has reported hx varices/banding, HE, ascites with last tap over a year ago, on diuretics. He reports he
had XRT at [facility] for suspected liver tumor but 2nd opinion at [facility] did not believe he has HCC. Had EGD [address] Goodwin for hematemesis finding normal esophagus, 18mm DU in bulb clean base. He denies NSAIDs. Reports having black
stool x 2 this am. He was seen in ER 05/[address] showed mild peripancreatic edema. Lipase then was normal 201. Today Lipase 309, AST 64, TB 3.1. NH3 116, Hgb 11.2, Plt 91. US- no ascites
REC:
Continue EtOH withdrawal protocol. He is interested in inpt rehab. This was successful and he was abstinent for 3 years in the past
Check INR to calculate DF and MELD. Doubt he qualifies for steroids
Continue Lactulose and xifaxan for HE
Continue lasix and aldactone for ascites hx
If Hgb stable and no signs of bleeding, can stop octreotide and protonix gtt and d/c abx
F/U with OP outsole cutter machine after d/c Dr Cortes at [facility]
Original Note:
Consultation
-
Date/Time Consultation Requested: 05/20/24 1500
Date/Time Consultation Performed: 05/20/24 1520
Requesting Provider: Kailey Landvaerde MD
Performing Provider: ABIEL Bach, Jackie Mills,
Reason for Consultation: hepatic encephalopathy
Medical History
Chief Complaint / HPI
Chief Complaint: abdominal ETOH withdrawal
History of Present Illness:
Pt is a 49yo with hx ETOH cirrhosis, HCC with prior radiation(pt states possible no HCC on second opinion),ETOH abuse, prior ascites, HE, EV with prior banding, gastric ulcer, prior withdrawal seizure, gastric ulcer, portal HTN with ETOH use first
time in several months with admitted drinking 1 case beer and 1 bottle ETOH daily with of friend. He is now noted with onset of tremors with concern for withdrawal, nausea, abdominal pain, confusion, and black stools. CT completed 05/11
with suggestion of pancreatitis and cirrhosis with splenomegaly and paraesophageal varices. Pt states he has been on contact with [facility] for rehab but recommended ER first for withdrawal prior to rehab program. On admission noted with
pancytopenia with hbg 11.2 and platelets 91, LFT with bili 3.1, AST 64, ALT 25, alk phos 125, lipase 309. Recent INR 1.58 on 05/11. No NSAID or Anticoagulation use.
At this time he has continued tremors and restless legs. He admits to nausea without vomiting. Abd pain worse with palpation and canno states anything for improvement. He does also admit to increased abdominal girth. He otherwise denies
dysphagia, GERD, diarrhea, constipation, or red blood in stool.
Past Medical History
Past Medical History: Other (ETOH cirrhosis, HCC with prior radiation , seizure with ETOH withdrawal, portal HTN, gastric ulcer ,EV with prior banding, HE, ascites )
Past Surgical History: Orthopedic (hip replacement ) and Other (eye surgery)
Social History
Tobacco: Non-Smoker
Alcohol: Chronic Alcoholic
Drug: Marijuana
Personal:
Living: With Family
Employment: Not Employed
Family History
Family History: Other (brother from cirrhosis )
Allergies / Home Medications
Allergy/AdvReac Type Severity Reaction Status Date / Time
No Known Allergies Allergy Verified 05/10/24 23:54
�Medication �Instructions �Recorded
lactulose 10 gram/15 mL (15 mL) 20 gm PO BID Liver issues 05/27/21
oral solution
pantoprazole 40 mg tablet,delayed 40 mg PO BID #30 tabs 05/29/21
release
carvedilol 3.125 mg tablet (Coreg) 3.125 mg PO BID 05/20/24
furosemide 40 mg tablet (Lasix) 40 mg PO DAILY 05/20/24
rifaximin 550 mg tablet (Xifaxan) 550 mg PO BID 05/20/24
spironolactone 50 mg tablet 50 mg PO DAILY 05/20/24
Review of Systems
-
History Source: Patient
Constitutional: Reports Weight Gain
EENT: Reports No Symptoms
Respiratory: Reports No Symptoms
Cardiac: Reports No Symptoms
Abdomen/GI: Reports Abdominal Pain (with distention), Nausea and Black Stools
: Reports No Symptoms and Dark Urine
Musculoskeletal: Reports Other (restless legs )
Skin: Reports No Symptoms
Neurological: Reports Weakness
Endocrine: Reports No Symptoms
Hematologic/Lymphatic: Reports Bleeding (black stools)
Vital Signs
Temp Pulse Resp BP Pulse Ox
98.2 F 66 18 137/73 97
05/20/24 12:15 05/20/24 15:00 05/20/24 15:00 05/20/24 15:00 05/20/24 15:00
Physical Exam
Exam
General: Well Developed, Well Nourished, No Apparent Distress and Other (anxious with withdrawal )
Respiratory: Clear
Cardiac: Regular Rhythm
GI: Soft, Tender and Distended
Musculoskeletal: No Clubbing, No Cyanosis and Edema
Neuro: Awake, Alert, AO x 3 and Other (occasional forgetfulness )
Psych: Calm
Results
WBC 3.4 10^3/uL (4.8-10.8) L 05/20/24 12:52
Hgb 11.2 g/dL (13.0-18.0) L 05/20/24 12:52
Hct 31.5 % (39.0-52.0) L 05/20/24 12:52
MCV 94.0 fL (80.0-94.0) 05/20/24 12:52
Plt Count 91 10^3/uL (130-400) L 05/20/24 12:52
Absolute Neuts (auto) 1.5 10^3/uL (1.4-6.5) 05/20/24 12:52
Sodium 141 mmol/L (135-145) 05/20/24 12:52
Potassium 4.2 mmol/L (3.5-5.1) 05/20/24 12:52
Chloride 107 mmol/L (98-107) 05/20/24 12:52
Carbon Dioxide 23 mmol/L (22-30) 05/20/24 12:52
BUN 7 mg/dl (9-20) L 05/20/24 12:52
Creatinine 0.7 mg/dL (0.7-1.3) 05/20/24 12:52
Calcium 8.6 mg/dl (8.4-10.2) 05/20/24 12:52
Total Bilirubin 3.1 mg/dl (0.2-1.3) H 05/20/24 12:52
AST 64 U/L (17-59) H 05/20/24 12:52
ALT 25 U/L (0-50) 05/20/24 12:52
Alkaline Phosphatase 125 U/L (38-126) 05/20/24 12:52
Lipase 309 U/L (23-300) H 05/20/24 12:52
Diagnostic Image Results:
05/11 CT Abd/pelvis W Iv Cont
1). There is mild peripancreatic edema suggesting possible pancreatitis and correlation with the patient's amylase and lipase is recommended.
2). There is cirrhosis with splenomegaly and paraesophageal varices suggesting portal hypertension
3). There is a stable old compression fracture superior endplate T1
05/11 HCT No acute intracranial abnormality.
05/20 US abdomen pending
Prior GI Procedures:
EGD: 05/2021 EGD [facility]- - Normal esophagus.
- Portal hypertensive gastropathy.
- Non-bleeding duodenal ulcer with a clean ulcer base
(Dinesh Class III).
- Normal second portion of the duodenum.
- No specimens collected.
Colonoscopy: in past did no recall details
Assessment / Plan
-
Pt is a 49yo with hx ETOH cirrhosis, HCC with prior radiation(pt states possible no HCC on second opinion),ETOH abuse, prior ascites, HE, EV with prior banding, gastric ulcer, prior withdrawal seizure, gastric ulcer, portal HTN with ETOH use first
time in several months with admitted drinking 1 case beer and 1 bottle hard liquior daily with of friend. He is now noted with onset of tremors with concern for withdrawal, nausea, abdominal pain, confusion, and black stools. CT completed
05/11 with suggestion of pancreatitis and cirrhosis with splenomegaly and paraesophageal varices. Pt states he has been on contact with [facility] for rehab but recommended ER first for withdrawal prior to rehab program. On admission noted with
pancytopenia with hbg 11.2 and platelets 91, LFT with bili 3.1, AST 64, ALT 25, alk phos 125, lipase 309. Recent INR 1.58 on 05/11. follow with Dr. Cortes at [facility].
-abdominal pain recent CT with concern for pancreatitis with elevated lipase
-ETOH abuse with recent binge with withdrawal
-hx ETOH cirrhosis
-black stools
-pancytopenia
-coagulopathy
-HE with elevated ammonia level on admission
-? HCC with prior radiation
-hx ascites
-EV with prior banding/ portal HTN
-hypoalbuminemia
-hx gastric ulcer
-prior W/D seizure
PLAN:
etiology of abdominal pain relate to pancreatitis with recent binge with change on CT 05/11 and lipase elevation vs ascites though not noted on recent CT vs other
also concern for HE with elevated ammonia-- r/p infection, may be GI bleed related (? portal HTN)
await US to assess for ascites
monitor for ETOH withdrawal
cont Xifaxan and Lactulose BID
cont Lasix and Aldactone
peter culture
follow stool record with recent black stools, BUN normal if signs of aggressive bleeding consider EGD
s/p IVF bolus given in ER to add LR at 100ml/hr
cont abx with possible GI bleed and cirrhosis
add INR in AM to calculate MELD
social work as try to get to ETOH rehab-- support given
OP follow up with hepatology Dr. Cortes at [facility]
will follow
-
-
Thank you for consultation and allowing me to participate in the patient's care. Please call the hotel recreational facilities manager GI physician during the after hours with any questions or concerns.
[2024-05-20] MEDS: ROCEPHIN 2000 MG IV (16:30)
[2024-05-20] MEDS: STERILE WATER FOR INJECTION 20 ML IV (16:30)
[2024-05-20 16:48] LABS: Urine Albumin Trace (Neg - Trace); Urine Bilirubin 2+ (Negative); Urine Character Clear (Clear); Urine Color Yellow; Urine Glucose Negative (Negative); Urine Ketone Negative (Negative); Urine Leukocyte Trace (Negative); Urine Nitrite Negative (Negative); Urine Occult Blood Negative (Negative); Urine Specific Gravity 1.015 (<1.030); Urine Urobilinogen 4+ (Neg - 1+); Urine pH 6.5 (5.0-9.0)
[2024-05-20 16:56] LABS: Urine Mucus Few; Urine Red Blood Cell 0-2 /HPF (0-2)
[2024-05-20 16:57] LABS: Urine Bacteria Few (Negative); Urine White Cell 0-2 /HPF (0-5)
[2024-05-20] MEDS: DILAUDID 0.5 MG IV (17:50)
[2024-05-20] MEDS: ATIVAN 1 MG PO (17:50)
[2024-05-20] MEDS: LR 1000 IV (18:01)
--- NOTE | 2024-05-20 18:05 | PTCARENOTE ---
1723: Patient arrived to IMU. Patient ambulated from stretcher to bed with stand by assist on arrival to the unit. Patient on RA with SpO2 greater than 92%. Abdomen is round and obese. IVF running per order. Call moreno within reach, bed in lowest
position, wheels in the lowest.
[2024-05-20] MEDS: SANDOSTATIN 500.6 MCG IV (18:28)
[2024-05-20] MEDS: ZOFRAN 4 MG IV (19:13)
[2024-05-20] MEDS: COREG 3.125 MG PO (20:21)
[2024-05-20] MEDS: XIFAXAN 550 MG PO (20:21)
[2024-05-20] MEDS: THIAMINE INJECTION 200 MG IV (20:21)
--- NOTE | 2024-05-20 22:22 | PTCARENOTE ---
Received pt from day shift. Pt ox3 and drowsy but arouses easily to verbal stimuli. Pt NSR on the monitor. VSS. IV fluids running (see MAR). Pt nauseous and vomited twice. PRN Zofran given, Pt reported nausea has now resolved. Hygiene completed. Pt
resting in bed with call moreno in reach.
[2024-05-21] VITALS (10 sets, daily range): BP systolic 98–139; BP diastolic 48–106
[2024-05-21] MEDS: DILAUDID 0.5 MG IV ×4 (03:37→20:34)
[2024-05-21] MEDS: LR 1000 IV ×2 (03:38→14:04)
[2024-05-21 05:37] LABS: Hematocrit 29.7 % (39.0-52.0); Hemoglobin 10.3 g/dL (13.0-18.0); Mean Corp Hgb Conc. 34.7 g/dL (33.0-37.0); Mean Corpuscular Hgb 33.9 pg (27.0-31.0); Mean Corpuscular Volume 97.7 fL (80.0-94.0); Mean Platelet Volume 10.7 fL (7.4-10.4); Platelet Count 61 10^3/uL (130-400); Red Blood Cell Count 3.04 10^6/uL (4.70-6.10); White Blood Cell Count 2.1 10^3/uL (4.8-10.8)
[2024-05-21 05:46] LABS: INR 1.76; PT 21.1 Sec (11.4-14.6)
[2024-05-21] MEDS: SANDOSTATIN 500.6 MCG IV (06:13)
[2024-05-21 07:55] LABS: ALT (SGPT) 24 U/L (0-50); AST (SGOT) 52 U/L (17-59); Albumin 2.9 g/dl (3.5-5.0); Alkaline Phosphatase 107 U/L (38-126); Blood Urea Nitrogen 5 mg/dl (9-20); Calcium 7.9 mg/dl (8.4-10.2); Carbon Dioxide 22 mmol/L (22-30); Chloride 108 mmol/L (98-107); Glucose 118 mg/dl (70-99); Potassium 4.1 mmol/L (3.5-5.1); Sodium 140 mmol/L (135-145); Total Bilirubin 4.3 mg/dl (0.2-1.3); Total Protein 5.9 g/dl (6.3-8.2); eGFR > 60.00
[2024-05-21] MEDS: DUPHALAC/CHRONULAC 20 GRAMS PO (07:56)
[2024-05-21] MEDS: COREG 3.125 MG PO ×2 (07:57→20:33)
[2024-05-21] MEDS: XIFAXAN 550 MG PO ×2 (07:58→20:33)
[2024-05-21] MEDS: FOLVITE 1 MG PO (07:58)
[2024-05-21] MEDS: THIAMINE INJECTION 200 MG IV ×2 (07:58→20:33)
--- NOTE | 2024-05-21 08:45 | PTCARENOTE ---
On walking rounds , Pt AAOx3 Msas of 1 , on RA lungs diminished. IV running as ordered. CO of pain in L neck, given pain med as ordered.
[2024-05-21] MEDS: PROTONIX 100 IV (09:09)
[2024-05-21 09:13] LABS: Band Neutrophils 0 % (0-3); Eosinophils 4 % (0-6); Lymphocytes 32 % (20-51); Monocytes 12 % (2-9); Segmented Neutrophils 52 % (42-75)
[2024-05-21 09:14] LABS: Platelets Checked Yes
[2024-05-21 09:15] LABS: Normal RBC Morphology Yes; Total Cells Counted 100
[2024-05-21] MEDS: ZOFRAN 4 MG IV ×2 (10:35→20:33)
--- NOTE | 2024-05-21 11:18 | CM ---
Patient seen bedside with daughter Hailey
dx ETOH WD
Followed by Jos[facility].
Patient IA completed.
Patient lives with spouse and daughter in a split level home with 4 steps.
Patient independent prior to admission.
Patient has a drivers license but does not drive.
Patient has not been seen by PCP since his MD retired.
Patient followed by his construction project administrator.
Patient drowsy and vomiting this am.
Per daughter patient is interested in inpatient ETOH rehab and has reached out to [facility].
Daughter and patient agreeable to [facility] referral.
TC to Nixon from [facility], he will see this afternoon.
PCP: [facility]
Pharmacy: [facility]
Plan: hopefully inpatient ETOH rehab
[2024-05-21] MEDS: PROTONIX 40 MG PO (11:51)
[2024-05-21] MEDS: REGLAN 10 MG IV (12:24)
--- NOTE | 2024-05-21 14:19 | W.PN.GI.CBS2 ---
Today's Communication / Plan
-
Advance diet monitor GI output
Assessment / Plan
-
Pt is a 49yo with hx ETOH cirrhosis, HCC with prior radiation(pt states possible no HCC on second opinion),ETOH abuse, prior ascites, HE, EV with prior banding, gastric ulcer, prior withdrawal seizure, gastric ulcer, portal HTN with ETOH use first
time in several months with admitted drinking 1 case beer and 1 bottle hard liquior daily with of friend. He is now noted with onset of tremors with concern for withdrawal, nausea, abdominal pain, confusion, and black stools. CT completed
05/11 with suggestion of pancreatitis and cirrhosis with splenomegaly and paraesophageal varices. Pt states he has been on contact with [facility] for rehab but recommended ER first for withdrawal prior to rehab program. On admission noted with
pancytopenia with hbg 11.2 and platelets 91, LFT with bili 3.1, AST 64, ALT 25, alk phos 125, lipase 309. Recent INR 1.58 on 05/11. follow with Dr. Cortes at [facility].
-abdominal pain recent CT with concern for pancreatitis with elevated lipase
-ETOH abuse with recent binge with withdrawal
-hx ETOH cirrhosis
-black stools
-pancytopenia
-coagulopathy
-HE with elevated ammonia level on admission
-? HCC with prior radiation
-hx ascites
-EV with prior banding/ portal HTN
-hypoalbuminemia
-hx gastric ulcer
-prior W/D seizure
05/20/24
etiology of abdominal pain relate to pancreatitis with recent binge with change on CT 05/11 and lipase elevation vs ascites though not noted on recent CT vs other
also concern for HE with elevated ammonia-- r/p infection, may be GI bleed related (? portal HTN)
monitor for ETOH withdrawal
cont Xifaxan and Lactulose BID
cont Lasix and Aldactone
peter culture
follow stool record with recent black stools, BUN normal if signs of aggressive bleeding consider EGD
s/p IVF bolus given in ER to add LR at 100ml/hr
cont abx with possible GI bleed and cirrhosis
add INR in AM to calculate MELD
social work as try to get to ETOH rehab-- support given
OP follow up with hepatology Dr. Cortes at [facility]
05/21/24
Patient with minimal nausea, no vomiting. Improved abdominal pain
Has had no bowel movements with no overt bleeding
Reviewed ultrasound from yesterday showing no ascites
No significant withdrawal
Okay for low-fat diet
Hemoglobin stable at baseline, chronic thrombocytopenia
Currently on ceftriaxone in the setting of recent possible bleeding with questionable black stools
Since no significant bleeding did stop the PPI and octreotide drip for once daily PPI
Check MELD labs tomorrow
DT withdrawal protocol
Subjective
Subjective
Date of Service: May 21, 2024
Patient complains of neck pain but no abdominal pain. No bowel movements
Minimal nausea. No vomiting. Less tremulous. Daughter at bedside
Objective
Data Reviewed
Laboratory Data:
Laboratory Results
05/21/24 05:11
05/21/24 06:16
Laboratory Results
PT 21.1 Sec (11.4-14.6) H 05/21/24 05:10
INR 1.76 05/21/24 05:10
Total Bilirubin 4.3 mg/dl (0.2-1.3) H 05/21/24 06:16
AST 52 U/L (17-59) 05/21/24 06:16
ALT 24 U/L (0-50) 05/21/24 06:16
Alkaline Phosphatase 107 U/L (38-126) 05/21/24 06:16
Lipase 309 U/L (23-300) H 05/20/24 12:52
Vital Signs and I&O:
Vital Signs
Temp Pulse Resp BP Pulse Ox
97.7 F 74 15 132/75 95
05/21/24 11:36 05/21/24 12:00 05/21/24 12:00 05/21/24 08:00 05/21/24 12:00
I&O
05/20/24 05/21/24 05/22/24
06:59 06:59 06:59
Intake Total 160 / 160
Output Total 500 / 500 150 / 150
Balance -500 / -500
Physical Exam
Physical Exam
HEENT: Anicteric (Mildly icteric)
GI: Soft and Tender
Extremities: No Edema
Neuro: Non Focal
[2024-05-21] MEDS: STERILE WATER FOR INJECTION 20 ML IV (15:43)
[2024-05-21] MEDS: ROCEPHIN 2000 MG IV (15:43)
[2024-05-21] MEDS: ATIVAN 1 MG PO ×2 (15:50→22:17)
[2024-05-21] MEDS: FLUSH (NSS) 1 FLUSH IV ×2 (15:50→16:10)
--- NOTE | 2024-05-21 16:14 | W.PN.HOSP.TC ---
Today's Communication/Plan
-
monitor hbg
protonix/octreotide per GI
diet advnced to LF
maintain on MSAS/ativan
Assessment / Plan
Assessment / Plan
# Alcohol withdrawal
# Alcohol use disorder
# History of alcohol withdrawal seizures
-MSAS score reviewed
-Continue Ativan PRN
-Continue thiamine and folate
-Patient willing to go through alcohol rehab, continue supportive care.
# Hepatic encephalopathy
# History of alcoholic liver cirrhosis
# Reported history of hepatocellular carcinoma
-Ammonia level 116
-Continue lactulose
-Continue rifaximin
-Abdominal ultrasound to neg for ascites
-Continue Lasix, spironolactone
-Continue Coreg
# Upper GI bleeding
# Epigastric pain secondary to GERD/ascites
# History of esophageal varices status post banding
# History of gastric ulcer
-GI evaluated and no overt bleeding.
-PPI/octreotide drip per GI recommendation
-maintain on Ceftriaxone
-Patient follows GI at [facility]
# Leukopenia/thrombocytopenia secondary to cirrhosis
-TWBC trending down, monitor.
-plt low but stable, monitor.
#Chronic macrocytic anemia secondary to cirrhosis
-Hemoglobin stable at 11.2
Marijuana user
Full code
DVT prophylaxis�SCDs
Total time spent : 52 mins
Anticipated Discharge: 24 - 48 hours
Subjective/Interval History
-
Date of Service: May 21, 2024
some abd pain
continues to have nausea/vomiting
Objective Data
-
Labs:
Laboratory Results
05/21/24 05/21/24 05/21/24
05:10 05:11 06:16
WBC 2.1 L*
Hgb 10.3 L
Hct 29.7 L
Plt Count 61 L D
PT 21.1 H
INR 1.76
Sodium Cancelled 140
Potassium Cancelled 4.1
Chloride Cancelled 108 H
Carbon Dioxide Cancelled 22
BUN Cancelled 5 L
Creatinine Cancelled 0.6 L
Glucose Cancelled 118 H
Calcium Cancelled 7.9 L
Total Bilirubin Cancelled 4.3 H
AST Cancelled 52
ALT Cancelled 24
Alkaline Phosphatase Cancelled 107
Vital Signs:
Vital Signs
Temp Pulse Resp BP Pulse Ox
97.4 F 46 16 122/74 95
05/21/24 15:43 05/21/24 15:47 05/21/24 15:47 05/21/24 15:47 05/21/24 15:47
I&O
05/20/24 05/21/24 05/22/24
06:59 06:59 06:59
Intake Total 160 / 160
Output Total 500 / 500 150 / 150
Balance -500 / -500
Review of Systems
-
Respiratory: Reports No Symptoms
Cardiac: Reports No Symptoms
Abdomen/GI: Reports No Symptoms
Physical Exam
-
General: No Apparent Distress and Comfortable
HEENT: Negative Oxygen
Respiratory: Clear to Auscultation
Cardiac: Regular Rhythm and S1/S2; Negative Murmur or Rub
GI: Soft, Nontender, Nondistended and Normal Bowel Sounds
Musculoskeletal: No Edema
Neuro: Awake, Alert, Oriented, No Motor Deficits and Nonfocal/Grossly Intact
Psych: Calm
[2024-05-22] VITALS (15 sets, daily range): BP systolic 91–124; BP diastolic 50–83; PULSE 69; O2SAT 98
--- NOTE | 2024-05-22 00:56 | PTCARENOTE ---
assumed care of patient. pt is AAOx3-able to make needs known. VSS. complaining of abdominal pain/slight nausea. medicated per MAR. MSAS 2-5. some tremors noted. pt 95% RA. while sleeping, oxygen dropping to 89%. placed on 2L while asleep. care
ongoing.
[2024-05-22] MEDS: LR IV (00:59)
[2024-05-22 06:05] LABS: Hematocrit 31.9 % (39.0-52.0); Hemoglobin 11.1 g/dL (13.0-18.0); Mean Corp Hgb Conc. 34.8 g/dL (33.0-37.0); Mean Corpuscular Hgb 33.5 pg (27.0-31.0); Mean Corpuscular Volume 96.4 fL (80.0-94.0); Mean Platelet Volume 10.7 fL (7.4-10.4); Platelet Count 66 10^3/uL (130-400); Red Blood Cell Count 3.31 10^6/uL (4.70-6.10); Red Cell Dist. Width 15.8 % (11.5-14.5); White Blood Cell Count 2.4 10^3/uL (4.8-10.8)
[2024-05-22 06:09] LABS: INR 1.66; PT 19.8 Sec (11.4-14.6)
--- NOTE | 2024-05-22 06:16 | PTCARENOTE ---
WBC 2.4- critical result told to Paula BEEBE- no new orders.
[2024-05-22 06:27] LABS: ALT (SGPT) 27 U/L (0-50); AST (SGOT) 66 U/L (17-59); Albumin 2.9 g/dl (3.5-5.0); Alkaline Phosphatase 103 U/L (38-126); Blood Urea Nitrogen 5 mg/dl (9-20); Calcium 8.2 mg/dl (8.4-10.2); Carbon Dioxide 22 mmol/L (22-30); Chloride 108 mmol/L (98-107); Glucose 95 mg/dl (70-99); Sodium 140 mmol/L (135-145); Total Bilirubin 3.2 mg/dl (0.2-1.3); Total Protein 6.1 g/dl (6.3-8.2); eGFR > 60.00
[2024-05-22] MEDS: COREG 3.125 MG PO ×2 (08:58→20:20)
[2024-05-22] MEDS: FOLVITE 1 MG PO (08:58)
[2024-05-22] MEDS: PROTONIX 40 MG PO (08:58)
[2024-05-22] MEDS: XIFAXAN 550 MG PO ×2 (08:58→20:20)
[2024-05-22] MEDS: THIAMINE INJECTION 200 MG IV ×2 (08:58→20:22)
[2024-05-22] MEDS: DUPHALAC/CHRONULAC 20 GRAMS PO (08:58)
[2024-05-22] MEDS: ZOFRAN 4 MG IV (09:06)
[2024-05-22] MEDS: DILAUDID 0.5 MG IV ×3 (09:07→20:23)
--- NOTE | 2024-05-22 09:20 | W.PN.HOSP.TC ---
Today's Communication/Plan
-
Continue alcohol withdrawal protocol
PT OT evaluation
Diet as tolerated
Monitor hemoglobin
Monitor for any GI bleed symptoms
Transfer to [facility]
Eventual alcohol rehab
Assessment / Plan
Assessment / Plan
# Alcohol withdrawal - Improving
Alcohol use disorder
History of alcohol withdrawal seizures
-MSAS score reviewed, and remains less than 5 for the night
-Continue Ativan PRN
-Continue thiamine and folate
-Patient willing to go through alcohol rehab and [facility] involved.
# Hepatic encephalopathy - Improved
History of alcoholic liver cirrhosis
Reported history of hepatocellular carcinoma
-Ammonia level 116 at admission
-Continue lactulose daily and rifaximin
-Abdominal ultrasound to neg for ascites
-Continue Lasix, spironolactone
-Continue Coreg
# Upper GI bleeding
Epigastric pain secondary to GERD/ascites
History of esophageal varices status post banding
History of gastric ulcer
-GI evaluated and no overt bleeding.
-Hemoglobin remained stable. No hematemesis/melena overnight
-Octreotide drip discontinued. Protonix changed to oral.
-maintain on Ceftriaxone
-Patient follows GI at [place]
# Leukopenia/thrombocytopenia secondary to cirrhosis
-TWBC trending down, monitor.
-plt low but stable, monitor.
#Chronic macrocytic anemia secondary to cirrhosis
-Hemoglobin stable at 11.2
Marijuana user
Full code
DVT prophylaxis�SCDs
PT/OT evaluation
Transfer med/surg
Anticipated Discharge: 24 - 48 hours
Subjective/Interval History
-
Date of Service: May 22, 2024
Patient resting comfortably in bed
Complaining some lower abdominal discomfort
Afebrile overnight
No reported melena/hematemesis/vomiting overnight
Objective Data
-
Labs:
Laboratory Results
05/22/24
05:31
WBC 2.4 L*
Hgb 11.1 L
Hct 31.9 L
Plt Count 66 L
PT 19.8 H
INR 1.66
Sodium 140
Potassium 4.0
Chloride 108 H
Carbon Dioxide 22
BUN 5 L
Creatinine 0.7
Glucose 95
Calcium 8.2 L
Total Bilirubin 3.2 H
AST 66 H
ALT 27
Alkaline Phosphatase 103
Vital Signs:
Vital Signs
Temp Pulse Resp BP Pulse Ox
98.2 F 58 16 108/56 94
05/22/24 07:00 05/22/24 08:00 05/22/24 08:00 05/22/24 08:00 05/22/24 08:00
I&O
05/21/24 05/22/24 05/23/24
06:59 06:59 06:59
Intake Total 1360 / 1360
Output Total 500 / 500 1150 / 1150
Balance -500 / -500 210 / 210
Review of Systems
-
Respiratory: Reports No Symptoms
Cardiac: Reports No Symptoms
Abdomen/GI: Reports Abdominal Pain; Denies Nausea or Vomiting
Physical Exam
-
General: Comfortable and Obese
HEENT: Negative Oxygen
Respiratory: Clear to Auscultation
Cardiac: Regular Rhythm and S1/S2; Negative Murmur or Rub
GI: Soft, Nondistended and Tender (Lower quadrant)
Musculoskeletal: No Edema
Neuro: Awake, Alert, Oriented, No Motor Deficits and Nonfocal/Grossly Intact
Psych: Calm
--- NOTE | 2024-05-22 13:58 | W.PN.GI.CBS2 ---
Today's Communication / Plan
-
-- GI will sign off
Please call questions. Awaiting inpatient rehab
Assessment / Plan
-
Pt is a 49yo with hx ETOH cirrhosis, HCC with prior radiation(pt states possible no HCC on second opinion),ETOH abuse, prior ascites, HE, EV with prior banding, gastric ulcer, prior withdrawal seizure, gastric ulcer, portal HTN with ETOH use first
time in several months with admitted drinking 1 case beer and 1 bottle hard liquior daily with of friend. He is now noted with onset of tremors with concern for withdrawal, nausea, abdominal pain, confusion, and black stools. CT completed
05/11 with suggestion of pancreatitis and cirrhosis with splenomegaly and paraesophageal varices. Pt states he has been on contact with [facility] for rehab but recommended ER first for withdrawal prior to rehab program. On admission noted with
pancytopenia with hbg 11.2 and platelets 91, LFT with bili 3.1, AST 64, ALT 25, alk phos 125, lipase 309. Recent INR 1.58 on 05/11. follow with Dr. Cortes at [place].
-abdominal pain recent CT with concern for pancreatitis with elevated lipase
-ETOH abuse with recent binge with withdrawal
-hx ETOH cirrhosis
-black stools
-pancytopenia
-coagulopathy
-HE with elevated ammonia level on admission
-? HCC with prior radiation
-hx ascites
-EV with prior banding/ portal HTN
-hypoalbuminemia
-hx gastric ulcer
-prior W/D seizure
05/20/24
etiology of abdominal pain relate to pancreatitis with recent binge with change on CT 05/11 and lipase elevation vs ascites though not noted on recent CT vs other
also concern for HE with elevated ammonia-- r/p infection, may be GI bleed related (? portal HTN)
monitor for ETOH withdrawal
cont Xifaxan and Lactulose BID
cont Lasix and Aldactone
peter culture
follow stool record with recent black stools, BUN normal if signs of aggressive bleeding consider EGD
s/p IVF bolus given in ER to add LR at 100ml/hr
cont abx with possible GI bleed and cirrhosis
add INR in AM to calculate MELD
social work as try to get to ETOH rehab-- support given
OP follow up with hepatology Dr. Cortes at [place]
05/21/24
Patient with minimal nausea, no vomiting. Improved abdominal pain
Has had no bowel movements with no overt bleeding
Reviewed ultrasound from yesterday showing no ascites
No significant withdrawal
Okay for low-fat diet
Hemoglobin stable at baseline, chronic thrombocytopenia
Currently on ceftriaxone in the setting of recent possible bleeding with questionable black stools
Since no significant bleeding did stop the PPI and octreotide drip for once daily PPI
Check MELD labs tomorrow
DT withdrawal protocol
05/22/2024 - MELD 3.0 17
-- Hemoglobin is stable. No overt bleeding and has not had any bowel movements
-- Lactulose to help with any HE and also to help move bowels
-- Continue low-fat diet with likely recent pancreatitis
-- Continue the ceftriaxone while hospitalized in the setting of questionable black stools and history of cirrhosis
-- Once daily PPI
-- Awaiting alcohol inpatient rehab
Subjective
Subjective
Date of Service: May 22, 2024
Has not had a bowel movement since prior to admission. No overt bleeding. Less tremulous. Did get a dose of lactulose today
Objective
Data Reviewed
Laboratory Data:
Laboratory Results
05/22/24 05:31
05/22/24 05:31
Laboratory Results
PT 19.8 Sec (11.4-14.6) H 05/22/24 05:31
INR 1.66 05/22/24 05:31
Total Bilirubin 3.2 mg/dl (0.2-1.3) H 05/22/24 05:31
AST 66 U/L (17-59) H 05/22/24 05:31
ALT 27 U/L (0-50) 05/22/24 05:31
Alkaline Phosphatase 103 U/L (38-126) 05/22/24 05:31
Lipase 309 U/L (23-300) H 05/20/24 12:52
Vital Signs and I&O:
Vital Signs
Temp Pulse Resp BP Pulse Ox
97.8 F 59 14 123/81 96
05/22/24 12:03 05/22/24 13:51 05/22/24 13:51 05/22/24 13:51 05/22/24 13:51
I&O
05/21/24 05/22/24 05/23/24
06:59 06:59 06:59
Intake Total 1360 / 1360
Output Total 500 / 500 1150 / 1150 500 / 500
Balance -500 / -500 210 / 210 -500 / -500
Physical Exam
Physical Exam
HEENT: Anicteric
GI: Soft and Non Tender
Neuro: Other (Slightly tremulous but alert and oriented)
[2024-05-22] MEDS: STERILE WATER FOR INJECTION 20 ML IV (16:15)
[2024-05-22] MEDS: ROCEPHIN 2000 MG IV (16:15)
[2024-05-22] MEDS: FLUSH (NSS) IV ×2 (16:17)
--- NOTE | 2024-05-22 17:13 | PTCARENOTE ---
Assumed care of patient at beginning of this shift from previous RN. MSAS initially Q2h; able to change to Q4h d/t scoring a 1 since 23:00 on previous shift. Patient met with [facility] and stated he wants to go directly to inpatient rehab; they will
continue to follow per human resources hr representative today. He continues to c/o intermittent abdominal pain; medicated with dilaudid x2 today. He c/o nausea this morning which was relieved with zofran. See worklist for full assessment and vital signs; see MAR for
med administration.
--- NOTE | 2024-05-22 22:55 | PTCARENOTE ---
Pt received at beginning of shift resting in bed. Hard to understand speech. MSAS 1 since start of shift. VSS Afebrile. SB/SR on CM. Admits to 6/10 lower abd pain. Medicated with Dilaudid as ordered. No change from previous assessment. Turns self in
bed. Call moreno remains within reach. Will continue to monitor.
[2024-05-23] VITALS (13 sets, daily range): BP systolic 94–134; BP diastolic 48–89; PULSE 60
[2024-05-23] MEDS: DILAUDID 0.5 MG IV (01:17)
[2024-05-23] MEDS: FLUSH (NSS) 1 FLUSH IV ×3 (01:17→17:02)
[2024-05-23 04:59] LABS: Hematocrit 30.2 % (39.0-52.0); Hemoglobin 10.9 g/dL (13.0-18.0); Mean Corp Hgb Conc. 36.1 g/dL (33.0-37.0); Mean Corpuscular Hgb 34.8 pg (27.0-31.0); Mean Corpuscular Volume 96.5 fL (80.0-94.0); Mean Platelet Volume 10.7 fL (7.4-10.4); Platelet Count 70 10^3/uL (130-400); Red Blood Cell Count 3.13 10^6/uL (4.70-6.10); Red Cell Dist. Width 15.9 % (11.5-14.5); White Blood Cell Count 3.7 10^3/uL (4.8-10.8)
[2024-05-23 05:22] LABS: ALT (SGPT) 24 U/L (0-50); AST (SGOT) 51 U/L (17-59); Albumin 2.8 g/dl (3.5-5.0); Alkaline Phosphatase 109 U/L (38-126); Blood Urea Nitrogen 5 mg/dl (9-20); Calcium 7.8 mg/dl (8.4-10.2); Carbon Dioxide 23 mmol/L (22-30); Chloride 109 mmol/L (98-107); Glucose 96 mg/dl (70-99); Potassium 3.5 mmol/L (3.5-5.1); Sodium 141 mmol/L (135-145); Total Protein 5.8 g/dl (6.3-8.2); eGFR > 60.00
[2024-05-23] MEDS: THIAMINE INJECTION 200 MG IV (08:33)
[2024-05-23] MEDS: DUPHALAC/CHRONULAC 20 GRAMS PO ×2 (08:33→19:59)
[2024-05-23] MEDS: PROTONIX 40 MG PO (08:33)
[2024-05-23] MEDS: FOLVITE 1 MG PO (08:33)
[2024-05-23] MEDS: XIFAXAN 550 MG PO ×2 (08:33→20:04)
[2024-05-23] MEDS: COREG 3.125 MG PO ×2 (10:08→19:59)
--- NOTE | 2024-05-23 10:22 | W.PN.HOSP.TC ---
Today's Communication/Plan
-
Discharge planning for rehab
Assessment / Plan
Assessment / Plan
# Alcohol withdrawal - Improving
Alcohol use disorder
History of alcohol withdrawal seizures
-MSAS score reviewed, currently out of alcohol withdrawal
-Continue Ativan PRN
-Continue thiamine and folate
-Patient willing to go through alcohol rehab and [facility] involved.
# Hepatic encephalopathy - Improved
History of alcoholic liver cirrhosis
Reported history of hepatocellular carcinoma
-Ammonia level 116 at admission
-Continue rifaximin home dose
-Lactulose dose has been increased to BID
-Abdominal ultrasound to neg for ascites
-Continue Lasix, spironolactone
-Continue Coreg
# Upper GI bleeding
Epigastric pain secondary to GERD/ascites
History of esophageal varices status post banding
History of gastric ulcer
-GI evaluated and no overt bleeding.
-Hemoglobin remained stable. No hematemesis/melena overnight
-Octreotide drip discontinued. Protonix changed to oral.
-Discontinue further ceftriaxone dosing
-Patient follows GI at [place]
# Leukopenia/thrombocytopenia secondary to cirrhosis
-TWBC trending down, monitor.
-plt low but stable, monitor.
#Chronic macrocytic anemia secondary to cirrhosis
-Hemoglobin stable at 11.2
Marijuana user
Full code
DVT prophylaxis�SCDs
PT/OT evaluation
Transfer med/surg
Anticipated Discharge: Within 24 hours
Subjective/Interval History
-
Date of Service: May 23, 2024
Resting comfortably in bed
Abdominal pain has resolved today
No nausea or vomiting
Denies of having any bowel movements in last 48hrs
Objective Data
-
Labs:
Laboratory Results
05/23/24
04:31
WBC 3.7 L
Hgb 10.9 L
Hct 30.2 L
Plt Count 70 L
Sodium 141
Potassium 3.5
Chloride 109 H
Carbon Dioxide 23
BUN 5 L
Creatinine 0.6 L
Glucose 96
Calcium 7.8 L
Total Bilirubin 2.0 H D
AST 51
ALT 24
Alkaline Phosphatase 109
Vital Signs:
Vital Signs
Temp Pulse Resp BP Pulse Ox
98.1 F 69 10 134/79 95
05/23/24 07:15 05/23/24 10:08 05/23/24 06:00 05/23/24 10:08 05/23/24 02:59
I&O
05/22/24 05/23/24 05/24/24
06:59 06:59 06:59
Intake Total 1360 / 1360 960 / 960
Output Total 1150 / 1150 1075 / 1075
Balance 210 / 210 -115 / -115
Review of Systems
-
Respiratory: Reports No Symptoms
Cardiac: Reports No Symptoms
Abdomen/GI: Reports No Symptoms
Physical Exam
-
General: Comfortable and Obese
HEENT: Negative Oxygen
Respiratory: Clear to Auscultation
Cardiac: Regular Rhythm and S1/S2; Negative Murmur or Rub
GI: Soft, Nontender and Nondistended
Musculoskeletal: No Edema
Neuro: Awake, Alert, Oriented, No Motor Deficits and Nonfocal/Grossly Intact
Psych: Calm
--- NOTE | 2024-05-23 11:29 | PTCARENOTE ---
Assumed care of patient at beginning of this shift from previous RN. Patient Ox3, no tremors noted this morning. He stated he was told by [facility] that he will be going to inpatient rehab tomorrow. Patient ordered miralax but refused stating he had a
large loose bm. See worklist for full assessment and vital signs; see MAR for med administration.
--- NOTE | 2024-05-23 12:21 | PTCARENOTE ---
Patient transferred to [facility] with belongings; report given to Eileen. Family accompanied on transfer.
[2024-05-23] MEDS: ROCEPHIN 2000 MG IV (17:03)
[2024-05-23] MEDS: STERILE WATER FOR INJECTION 20 ML IV (17:03)
[2024-05-23] MEDS: ROXICODONE 5 MG PO (17:16)
[2024-05-23] MEDS: VITAMIN B1 100 MG PO (19:59)
[2024-05-23] MEDS: ROXICODONE 10 MG PO (23:23)
[2024-05-24 07:30] VITALS: BP 122/63
[2024-05-24 08:59] LABS: Hematocrit 32.5 % (39.0-52.0); Hemoglobin 11.3 g/dL (13.0-18.0); Mean Corp Hgb Conc. 34.8 g/dL (33.0-37.0); Mean Corpuscular Hgb 34.3 pg (27.0-31.0); Mean Corpuscular Volume 98.8 fL (80.0-94.0); Mean Platelet Volume 10.4 fL (7.4-10.4); Platelet Count 63 10^3/uL (130-400); Red Blood Cell Count 3.29 10^6/uL (4.70-6.10); Red Cell Dist. Width 16.2 % (11.5-14.5); White Blood Cell Count 3.3 10^3/uL (4.8-10.8)
[2024-05-24] MEDS: VITAMIN B1 100 MG PO (09:17)
[2024-05-24] MEDS: DUPHALAC/CHRONULAC 20 GRAMS PO (09:17)
[2024-05-24] MEDS: COREG 3.125 MG PO (09:18)
[2024-05-24] MEDS: FOLVITE 1 MG PO (09:18)
[2024-05-24] MEDS: XIFAXAN 550 MG PO (09:23)
[2024-05-24] MEDS: ROXICODONE 10 MG PO ×2 (09:23→13:25)
[2024-05-24] MEDS: PROTONIX 40 MG PO (09:23)
[2024-05-24 09:40] LABS: ALT (SGPT) 23 U/L (0-50); AST (SGOT) 42 U/L (17-59); Albumin 3.1 g/dl (3.5-5.0); Alkaline Phosphatase 106 U/L (38-126); Blood Urea Nitrogen 5 mg/dl (9-20); Calcium 8.1 mg/dl (8.4-10.2); Carbon Dioxide 22 mmol/L (22-30); Chloride 108 mmol/L (98-107); Estimated Creatinine Clearance > 125 ml/min; Glucose 91 mg/dl (70-99); Potassium 3.7 mmol/L (3.5-5.1); Sodium 141 mmol/L (135-145); Total Bilirubin 2.3 mg/dl (0.2-1.3); Total Protein 6.1 g/dl (6.3-8.2); eGFR > 60.00
--- NOTE | 2024-05-24 10:48 | PTCARENOTE ---
Addendum entered by Salina Jaime RN 05/24/24 19:46:
Peripheral IV removed. Patient was discharged to [facility] rehab in [place]. Patient's daughter at bedside and took Father down to [employer] for [employer] that was sent from facility. Patient and daughter deny questions at this time.
Addendum entered by Salina Jaime RN 05/24/24 13:32:
Patient's daughter to bedside to calm down patient and patient agreeable to stay at this time.
Original Note:
Patient states that he has an emergency at home and wants to leave AMA. Called patient's daughter Hailey who states she will come to the hospital to talk to him. Hospitalist made aware.
[2024-05-24 11:30] VITALS: BP 127/61
[2024-05-24 11:57] LABS: Ammonia 44 umol/L (9-30)
--- NOTE | 2024-05-24 12:02 | CM ---
Addendum entered by Isabella Kern RN 05/24/24 16:03:
[facility] called [facility] has a bed . RN pt and daughter notified.
As per Clarita his ride to [facility] will be out side ED entrance at 6 pm tonight.
Requested dc from .
Addendum entered by Isabella Kern RN 05/24/24 15:29:
Nixon confirmed that [facility] did approve him . [facility] has no beds today but will have bed tomorrow.
,Pt,Hailey bernal ,RN and Nixon Otto notified on dc tomorrow.
Reinforced to pt that bed will be ready tomorrow and Nixon will set up transportation.
As per [facility] needs no additional information for admission.
Original Note:
MD said pt is medically ready for discharge.
Pt agrees to inpatient ETOH rehab.
SPoke with Nixon [phone] and Lobo Otto. Nixon is working with [facility] inpatient rehab approval.
Nixon will assist with auth for [facility] and transportation.
Awaiting pending labs.
Spoke with dolores Hart she is aware of dc plan and she and pt agree.
PLAN To Inpatient reah at [facility]
--- NOTE | 2024-05-24 14:15 | W.PN.HOSP.TC ---
Today's Communication/Plan
-
d/c planning for alc rehab
Assessment / Plan
Assessment / Plan
# Alcohol withdrawal - Resolved
Alcohol use disorder
History of alcohol withdrawal seizures
-MSAS score reviewed, currently out of alcohol withdrawal
-Continue Ativan PRN
-Continue thiamine and folate
-Patient willing to go through alcohol rehab and [facility] involved.
# Hepatic encephalopathy - Improved
History of alcoholic liver cirrhosis
Reported history of hepatocellular carcinoma
-Ammonia level 116 at admission, repeat check of 44 today
-Continue rifaximin home dose
-Lactulose dose has been increased to BID
-Abdominal ultrasound to neg for ascites
-Continue Lasix, spironolactone
-Continue Coreg
# Upper GI bleeding
Epigastric pain secondary to GERD/ascites
History of esophageal varices status post banding
History of gastric ulcer
-GI evaluated and no overt bleeding.
-Hemoglobin remained stable. No hematemesis/melena overnight
-Octreotide drip discontinued. Protonix changed to oral.
-Discontinue further ceftriaxone dosing
-Patient follows GI at [place]
# Leukopenia/thrombocytopenia secondary to cirrhosis
-TWBC trending down, monitor.
-plt low but stable, monitor.
#Chronic macrocytic anemia secondary to cirrhosis
-Hemoglobin stable at 11.2
Marijuana user
Full code
DVT prophylaxis�SCDs
PT/OT evaluation
Transfer med/surg
Anticipated Discharge: Today
Subjective/Interval History
-
Date of Service: May 24, 2024
Patient is anxious to leave
Complaining some back pain
No abdominal pain/nausea/vomiting
Having good bowel movement with lactulose
Objective Data
-
Labs:
Laboratory Results
05/24/24
08:40
WBC 3.3 L
Hgb 11.3 L
Hct 32.5 L
Plt Count 63 L
Sodium 141
Potassium 3.7
Chloride 108 H
Carbon Dioxide 22
BUN 5 L
Creatinine 0.7
Glucose 91
Calcium 8.1 L
Total Bilirubin 2.3 H
AST 42
ALT 23
Alkaline Phosphatase 106
Vital Signs:
Vital Signs
Temp Pulse Resp BP Pulse Ox
97.9 F 52 16 127/61 95
05/24/24 11:30 05/24/24 11:30 05/24/24 11:30 05/24/24 11:30 05/24/24 11:30
I&O
05/23/24 05/24/24 05/25/24
06:59 06:59 06:59
Intake Total 960 / 960 720 / 720
Output Total 1075 / 1075 975 / 975
Balance -115 / -115 -255 / -255
Review of Systems
-
Respiratory: Reports No Symptoms
Cardiac: Reports No Symptoms
Abdomen/GI: Denies Abdominal Pain, Nausea or Vomiting
Physical Exam
-
General: Comfortable and Obese
HEENT: Negative Oxygen
Respiratory: Clear to Auscultation
Cardiac: Regular Rhythm and S1/S2; Negative Murmur or Rub
GI: Soft, Nontender and Nondistended
Musculoskeletal: No Edema
Neuro: Awake, Alert, Oriented, No Motor Deficits and Nonfocal/Grossly Intact
Psych: Calm
[2024-05-24 15:20] VITALS: BP 120/60
[2024-05-24] MEDS: STERILE WATER FOR INJECTION 20 ML IV (16:20)
[2024-05-24] MEDS: ROCEPHIN 2000 MG IV (16:20)
[2024-05-24] MEDS: FLUSH (NSS) IV ×2 (17:27)
== END 2024-05-24 18:09 | DRG 439 ==
LOC: 4 EAST ACU 15:03
PROVIDERS: Internal Medicine; Nurse Practitioner Adult Health; Physician Assistant; ADMITTING PHYSICIAN Hospitalist; ATTENDING PHYSICIAN Hospitalist; EMERGENCY PHYSICIAN Emergency Medicine; OTHER PHYSICIAN Specialist
DX: K85.90 Acute pancreatitis without necrosis or infection, unspecified (principal); D61.818 Other pancytopenia; D68.9 Coagulation defect, unspecified; F10.139 Alcohol abuse with withdrawal, unspecified; I85.10 Secondary esophageal varices without bleeding; K76.6 Portal hypertension; D53.9 Nutritional anemia, unspecified; D69.59 Other secondary thrombocytopenia; K76.82 Hepatic encephalopathy; G25.81 Restless legs syndrome; E88.09 Other disorders of plasma-protein metabolism, not elsewhere classified; F41.9 Anxiety disorder, unspecified; K21.9 Gastro-esophageal reflux disease without esophagitis; K31.89 Other diseases of stomach and duodenum; K70.30 Alcoholic cirrhosis of liver without ascites; F14.90 Cocaine use, unspecified, uncomplicated; F12.90 Cannabis use, unspecified, uncomplicated; R03.0 Elevated blood-pressure reading, without diagnosis of hypertension; R16.1 Splenomegaly, not elsewhere classified; R94.31 Abnormal electrocardiogram [ECG] [EKG]; Z79.899 Other long term (current) drug therapy; Z87.11 Personal history of peptic ulcer disease; Z87.19 Personal history of other diseases of the digestive system; Z85.05 Personal history of malignant neoplasm of liver; Z92.3 Personal history of irradiation; Z96.649 Presence of unspecified artificial hip joint
CPT/HCPCS: 71046; 76705; 80053; 81003; 81015; 82077; 82140; 83690; 85025; 85027; 85610; 87040; 93005; 96361; 96374; 96375; 97116; 97163; 97166; 99291